=== PATIENT | female | born 2000 | race Caucasian/White ===

== ENCOUNTER 2021-01-06 21:29 | Emergency (ER) | payer SELFPAY ==
[~2021-01-06] VITALS: Ht 157.5 cm; Wt 54.0 kg
[2021-01-06 21:47] VITALS: BP 110/80
== END 2021-01-07 01:30 | disposition left against medical advice (07) ==
LOC: ER 21:29
DX: H57.89 Other specified disorders of eye and adnexa (principal); Z53.21 Procedure and treatment not carried out due to patient leaving prior to being seen by health care provider